=== PATIENT | female | born 1945 | race Caucasian/White ===

== ENCOUNTER 2023-06-07 12:39 | Inpatient (IN) | payer MEDICARE, OTHER ==
[2023-06-07 13:21] LABS: BASOPHILS PERCENT AUTO 0.4 % (0.2-1.5); EOSINOPHILS PERCENT AUTO 0.2 % (0.6-8.1); HEMATOCRIT 35.4 % (34.2-48.2); HEMOGLOBIN 11.9 g/dL (11.4-15.5); LYMPHOCYTES ABSOLUTE AUTO 0.6 x10-3/uL (1.0-4.4); LYMPHOCYTES PERCENT AUTO 7.9 % (18.4-52.1); MEAN CORPUSCULAR HEMOGLOBIN 30.4 pg (23.9-33.9); MEAN CORPUSCULAR HGB CONC 33.7 g/dL (31.9-34.8); MEAN CORPUSCULAR VOLUME 90.2 fL (76.7-100.5); MEAN PLATELET VOLUME 7.7 fL (7.1-12.4); MONOCYTES ABSOLUTE AUTO 0.5 x10-3/uL (0.3-1.0); MONOCYTES PERCENT AUTO 6.6 % (4.4-15.7); NEUTROPHILS ABSOLUTE AUTO 6.6 x10-3/uL (1.5-6.3); NEUTROPHILS PERCENT AUTO 84.9 % (30.8-76.2); PLATELET COUNT,PLT 245 x10(3)uL (151-488); RED BLOOD CELL COUNT 3.92 x10(6)uL (3.60-5.20); RED CELL DISTRIBUTION WIDTH 15.1 % (12.3-16.5); WHITE BLOOD CELL COUNT,WBC 7.8 x10-3/uL (3.0-10.3)
[2023-06-07 13:28] LABS: BLOOD UREA NITROGEN,BUN 36 mg/dL (7-18); BUN/CREATININE RATIO 18.9 (9-20); CALCIUM 10.3 mg/dL (8.6-10.2); CARBON DIOXIDE,CO2 28 mmol/L (21-32); CHLORIDE,CL 99 mmol/L (100-110); CREATININE 1.9 mg/dL (0.55-1.02); EST CRCL DRUG DOSING (CG) 20.73 mL/min; ESTIMATED GFR 27 mL/min (>60); GLUCOSE RANDOM 262 mg/dL (80-116); POTASSIUM,K 3.9 mmol/L (3.5-5.3); SODIUM,NA 136 mmol/L (135-145)
[2023-06-07 13:34] LABS: A/G RATIO 0.9; ALANINE AMINOTRANSFERASE,ALT 36 U/L (12-36); ALBUMIN 3.6 g/dL (3.2-4.6); ALKALINE PHOSPHATASE 89 IU/L (56-112); ASPARTATE AMNIOTRANSFERASE,AST 84 IU/L (5-25); BILIRUBIN TOTAL 0.9 mg/dL (0.1-1.3); PROTEIN TOTAL,TP 7.5 g/dL (6.0-8.0)
[2023-06-07] MEDS: HYDROmorphone 2 MG/ML SDV IVPUSH ONE (13:38)
[2023-06-07 13:50] LABS: INFLUENZA A NAA NEGATIVE (NEGATIVE); INFLUENZA B NAA NEGATIVE (NEGATIVE); RESPIRATORY SYNCYTIAL VIR NAA NEGATIVE (NEGATIVE)
[2023-06-07 13:52] LABS: CORONAVIRUS COVID-19 NAA POSITIVE (NEGATIVE)
[2023-06-07 13:56] LABS: INR 1.09 (1.00-1.24); PROTHROMBIN TIME 11.2 sec (9.0-11.1); PTT,PARTIAL THROMBOPLSTIN TIME 34.4 SECONDS (24.4-33.2)
[2023-06-07 14:01] LABS: LACTIC ACID 2.3 mmol/L (0.4-2.0)
[2023-06-07] MEDS: Sodium Chloride 0.9% 1,000 ML IV SCH ×2 (14:11→16:55)
[2023-06-07 14:49] LABS: BILIRUBIN,URINE NEGATIVE (NEGATIVE); GLUCOSE,URINE 100 mg/dL (NORMAL); KETONES,URINE NEGATIVE (NEGATIVE); LEUKOCYTE ESTERASE,URINE NEGATIVE (NEGATIVE); NITRITE,URINE NEGATIVE (NEGATIVE); OCCULT BLOOD,URINE LARGE (NEGATIVE); PROTEIN,URINE TRACE mg/dL (NEGATIVE); UROBILINOGEN,URINE NORMAL (NEGATIVE)
[2023-06-07 14:56] LABS: APPEARANCE,URINE CLEAR (CLEAR); BACTERIA,URINE OCCASIONAL (NS); COLOR,URINE YELLOW (YELLOW); RBC,URINE 0-5 (0-5); SQUAMOUS EPITHELIAL CELLS,UR OCCASIONAL (NS,R,O); WBC,URINE 0-5 (0-5)
[2023-06-07] MEDS ORDERED: Ondansetron 4 MG/2 ML SDV IV PRN (15:25)
[2023-06-07] MEDS ORDERED: Sennosides/Docusate Sodium 50-8.6 MG Tab PO PRN (15:25)
[2023-06-07] MEDS ORDERED: [UNRECOGNIZED DRUG - OTHER] TOP PRN (15:35)
[2023-06-07] MEDS ORDERED: Loratadine 10 MG Tab PO PRN (15:35)
[2023-06-07] MEDS ORDERED: CALCIUM ACETATE TOP PRN (15:35)
[2023-06-07] MEDS ORDERED: [UNRECOGNIZED DRUG - OTHER] NAS PRN (15:35)
[2023-06-07] MEDS: Dexamethasone 4 MG/ML 5 ML MDV IVPUSH SCH (16:52)
[2023-06-07] MEDS: REMDESIVIR 200 MG in Sodium Chloride 0.9% 250 ML IV ONE (16:58)
[2023-06-07] MEDS: Acetaminophen 325 MG Tab PO PRN (18:30)
[2023-06-07] MEDS: cefTRIAXone 1 GM Vial IVPUSH SCH (19:02)
[2023-06-07] MEDS: Apixaban 2.5 MG Tab PO SCH (20:02)
[2023-06-07] MEDS: Fluticasone NASAL Spray 16 GM Bottle NAS SCH (20:02)
[2023-06-07] MEDS: Mupirocin Oint 22 GM Tube TOP SCH (20:03)
[2023-06-07] MEDS: Diltiazem 240 MG Cap.ER PO SCH (20:03)
[2023-06-07] MEDS: metFORMIN 500 MG Tab PO SCH (20:04)
[2023-06-07] MEDS: glipiZIDE 5 MG Tab.ER PO SCH (20:05)
[2023-06-07] MEDS: Gabapentin 100 MG Cap PO SCH (20:05)
[2023-06-08 06:32] LABS: HEMATOCRIT 31.8 % (34.2-48.2); HEMOGLOBIN 10.7 g/dL (11.4-15.5); MEAN CORPUSCULAR HEMOGLOBIN 30.2 pg (23.9-33.9); MEAN CORPUSCULAR HGB CONC 33.5 g/dL (31.9-34.8); MEAN CORPUSCULAR VOLUME 90.2 fL (76.7-100.5); MEAN PLATELET VOLUME 7.4 fL (7.1-12.4); PLATELET COUNT,PLT 189 x10(3)uL (151-488); RED BLOOD CELL COUNT 3.53 x10(6)uL (3.60-5.20); RED CELL DISTRIBUTION WIDTH 15.5 % (12.3-16.5); WHITE BLOOD CELL COUNT,WBC 5.9 x10-3/uL (3.0-10.3)
[2023-06-08 06:42] LABS: A/G RATIO 0.9; ALANINE AMINOTRANSFERASE,ALT 41 U/L (12-36); ALKALINE PHOSPHATASE 75 IU/L (56-112); ASPARTATE AMNIOTRANSFERASE,AST 102 IU/L (5-25); BILIRUBIN TOTAL 0.3 mg/dL (0.1-1.3); BLOOD UREA NITROGEN,BUN 34 mg/dL (7-18); BUN/CREATININE RATIO 24.3 (9-20); CALCIUM 9.2 mg/dL (8.6-10.2); CARBON DIOXIDE,CO2 24 mmol/L (21-32); CHLORIDE,CL 103 mmol/L (100-110); CREATININE 1.4 mg/dL (0.55-1.02); EST CRCL DRUG DOSING (CG) 28.14 mL/min; ESTIMATED GFR 38 mL/min (>60); GLUCOSE RANDOM 266 mg/dL (80-116); POTASSIUM,K 4.3 mmol/L (3.5-5.3); PROTEIN TOTAL,TP 6.5 g/dL (6.0-8.0); SODIUM,NA 137 mmol/L (135-145)
[2023-06-08 06:49] LABS: BAND PERCENT MAN 2 % (0-6); LYMPHOCYTES PERCENT MAN 8 % (13-37); MONOCYTES PERCENT MAN 3 % (4-12); SEG NEUTROPHILS PERCENT MAN 87 % (46-82)
[2023-06-08] MEDS: metFORMIN 500 MG Tab PO SCH (08:00)
[2023-06-08] MEDS: Losartan 100 MG Tab PO SCH (08:02)
[2023-06-08] MEDS: Multivitamins with Iron/Calcium/Folic Acid/Minerals Tab PO SCH (08:04)
[2023-06-08] MEDS ORDERED: Fluticasone NASAL Spray 16 GM Bottle NAS PRN (10:00)
[2023-06-08] MEDS: traMADol 50 MG Tab PO PRN (11:23)
[2023-06-08] MEDS: REMDESIVIR 100 MG in Sodium Chloride 0.9% 100 ML IV SCH (16:08)
[2023-06-08] MEDS: Acetaminophen 650 MG Tab.ER PO SCH (21:39)
[2023-06-09 06:53] LABS: BASOPHILS PERCENT AUTO 0.3 % (0.2-1.5); EOSINOPHILS PERCENT AUTO 0.1 % (0.6-8.1); HEMATOCRIT 31.4 % (34.2-48.2); HEMOGLOBIN 10.6 g/dL (11.4-15.5); LYMPHOCYTES ABSOLUTE AUTO 0.9 x10-3/uL (1.0-4.4); LYMPHOCYTES PERCENT AUTO 11.9 % (18.4-52.1); MEAN CORPUSCULAR HEMOGLOBIN 30.7 pg (23.9-33.9); MEAN CORPUSCULAR HGB CONC 33.7 g/dL (31.9-34.8); MEAN CORPUSCULAR VOLUME 91.2 fL (76.7-100.5); MEAN PLATELET VOLUME 8.3 fL (7.1-12.4); MONOCYTES ABSOLUTE AUTO 0.3 x10-3/uL (0.3-1.0); MONOCYTES PERCENT AUTO 4.4 % (4.4-15.7); NEUTROPHILS ABSOLUTE AUTO 6.1 x10-3/uL (1.5-6.3); NEUTROPHILS PERCENT AUTO 83.3 % (30.8-76.2); PLATELET COUNT,PLT 193 x10(3)uL (151-488); RED BLOOD CELL COUNT 3.44 x10(6)uL (3.60-5.20); RED CELL DISTRIBUTION WIDTH 15.7 % (12.3-16.5); WHITE BLOOD CELL COUNT,WBC 7.3 x10-3/uL (3.0-10.3)
[2023-06-09 07:06] LABS: A/G RATIO 0.8; ALANINE AMINOTRANSFERASE,ALT 51 U/L (12-36); ALKALINE PHOSPHATASE 64 IU/L (56-112); ASPARTATE AMNIOTRANSFERASE,AST 103 IU/L (5-25); BILIRUBIN TOTAL 0.2 mg/dL (0.1-1.3); BLOOD UREA NITROGEN,BUN 42 mg/dL (7-18); CARBON DIOXIDE,CO2 22 mmol/L (21-32); CHLORIDE,CL 102 mmol/L (100-110); CREATININE 1.5 mg/dL (0.55-1.02); EST CRCL DRUG DOSING (CG) 26.26 mL/min; ESTIMATED GFR 35 mL/min (>60); GLUCOSE RANDOM 280 mg/dL (80-116); POTASSIUM,K 4.7 mmol/L (3.5-5.3); PROTEIN TOTAL,TP 6.8 g/dL (6.0-8.0); SODIUM,NA 135 mmol/L (135-145)
[2023-06-09] MEDS: Torsemide 20 MG Tab PO SCH (08:07)
[2023-06-09] MEDS ORDERED: Torsemide 20 MG Tab PO SCH (09:00)
[2023-06-09] MEDS: Nystatin Topical Powder 15 GM Bottle TOP SCH (10:49)
[2023-06-09] MEDS: Mupirocin Oint 22 GM Tube TOP SCH (10:49)
[2023-06-09] MEDS: Sodium Chloride 0.9% 10 ML Syringe FLUSH PRN (15:56)
[2023-06-09] MEDS: Diltiazem 240 MG Cap.ER PO SCH (21:31)
[2023-06-11] MEDS: Nystatin Topical Powder 15 GM Bottle TOP SCH (08:54)
[2023-06-11] MEDS ORDERED: Gabapentin 100 MG Cap ONE (21:17)
[2023-06-11] MEDS ORDERED: Acetaminophen 325 MG Tab ONE (21:22)
== END 2023-06-11 11:40 | disposition swing bed (61) | DRG 178 ==
LOC: FB.ED 12:39 → FB.MS 15:25 → UNDOADMIN 15:57
PROVIDERS: ADMIT Family Medicine; ATTEND Family Medicine
PROC: 3E0333Z Introduction of Anti-inflammatory into Peripheral Vein, Percutaneous Approach (ICD-10-PCS; principal; 2023-06-07)
PROC: XW033E5 Introduction of Remdesivir Anti-infective into Peripheral Vein, Percutaneous Approach, New Technology Group 5 (ICD-10-PCS; 2023-06-07)
DX: U07.1 COVID-19 (principal); I13.0 Hypertensive heart and chronic kidney disease with heart failure and stage 1 through stage 4 chronic kidney disease, or unspecified chronic kidney disease; L03.115 Cellulitis of right lower limb; I48.91 Unspecified atrial fibrillation; M51.36 Other intervertebral disc degeneration, lumbar region; M62.82 Rhabdomyolysis; N17.9 Acute kidney failure, unspecified; L03.90 Cellulitis, unspecified; I11.0 Hypertensive heart disease with heart failure; I48.11 Longstanding persistent atrial fibrillation; E11.22 Type 2 diabetes mellitus with diabetic chronic kidney disease; Z51.5 Encounter for palliative care; E11.40 Type 2 diabetes mellitus with diabetic neuropathy, unspecified; I50.9 Heart failure, unspecified; M19.90 Unspecified osteoarthritis, unspecified site; E86.0 Dehydration; N18.9 Chronic kidney disease, unspecified; T79.6XXA Traumatic ischemia of muscle, initial encounter; M51.16 Intervertebral disc disorders with radiculopathy, lumbar region; G89.29 Other chronic pain; I87.2 Venous insufficiency (chronic) (peripheral); Z79.01 Long term (current) use of anticoagulants; Z88.8 Allergy status to other drugs, medicaments and biological substances; Z91.048 Other nonmedicinal substance allergy status; Z96.659 Presence of unspecified artificial knee joint; Z79.84 Long term (current) use of oral hypoglycemic drugs; Z79.899 Other long term (current) drug therapy; Z90.89 Acquired absence of other organs; Z90.49 Acquired absence of other specified parts of digestive tract; Z98.890 Other specified postprocedural states
CPT/HCPCS: 0241U; 36415; 71045; 72100; 73521; 80053; 81001; 82550; 82947; 83605; 84484; 85025; 85610; 85730; 93005; 93010; 96361; 96374; 97161; 97165; 97530; 99285; 99222; 99231; 99232; 99238; A9270-GY; J0696; J1100; J1170; J3490; J7030; J7050

== ENCOUNTER 2023-06-11 11:41 | Inpatient (IN) | payer MEDICARE, OTHER ==
[2023-06-11] MEDS ORDERED: Acetaminophen/HYDROcodone 325-5 MG Tab PO PRN (12:38)
[2023-06-11] MEDS ORDERED: Acetaminophen 650 MG Tab.ER PO PRN (12:45)
[2023-06-11] MEDS: REMDESIVIR 100 MG in Sodium Chloride 0.9% 100 ML IV SCH (15:33)
[2023-06-11] MEDS ORDERED: Dexamethasone 4 MG/ML 5 ML MDV IVPUSH ONE (16:00)
[2023-06-11] MEDS: Acetaminophen 325 MG Tab PO PRN (16:44)
[2023-06-11] MEDS ORDERED: Acetaminophen 650 MG Tab.ER PO SCH (21:00)
[2023-06-11] MEDS: glipiZIDE 5 MG Tab.ER PO SCH (21:11)
[2023-06-11] MEDS: Apixaban 2.5 MG Tab PO SCH (21:12)
[2023-06-11] MEDS: metFORMIN 500 MG Tab PO SCH (21:12)
[2023-06-11] MEDS: Diltiazem 240 MG Cap.ER PO SCH (21:13)
[2023-06-11] MEDS: Gabapentin 100 MG Cap PO SCH (21:18)
[2023-06-12] MEDS: Multivitamin Tab PO SCH (09:17)
[2023-06-12] MEDS: Losartan 100 MG Tab PO SCH (09:18)
[2023-06-12] MEDS: Torsemide 20 MG Tab PO SCH (09:18)
[2023-06-12 09:26] LABS: HEMOGLOBIN 12.5 g/dL (11.4-15.5); MEAN CORPUSCULAR HEMOGLOBIN 29.9 pg (23.9-33.9); MEAN CORPUSCULAR HGB CONC 33.9 g/dL (31.9-34.8); MEAN CORPUSCULAR VOLUME 88.2 fL (76.7-100.5); MEAN PLATELET VOLUME 8.2 fL (7.1-12.4); PLATELET COUNT,PLT 292 x10(3)uL (151-488); RED CELL DISTRIBUTION WIDTH 14.6 % (12.3-16.5); WHITE BLOOD CELL COUNT,WBC 10.5 x10-3/uL (3.0-10.3)
[2023-06-12] MEDS: Triamcinolone Acetonide 0.1% Crm 15 GM Tube TOP SCH (09:28)
[2023-06-12 09:34] LABS: A/G RATIO 0.8; ALANINE AMINOTRANSFERASE,ALT 57 U/L (12-36); ALBUMIN 3.2 g/dL (3.2-4.6); ALKALINE PHOSPHATASE 78 IU/L (56-112); ASPARTATE AMNIOTRANSFERASE,AST 31 IU/L (5-25); BILIRUBIN TOTAL 0.5 mg/dL (0.1-1.3); BLOOD UREA NITROGEN,BUN 56 mg/dL (7-18); BUN/CREATININE RATIO 32.9 (9-20); CALCIUM 10.1 mg/dL (8.6-10.2); CARBON DIOXIDE,CO2 28 mmol/L (21-32); CHLORIDE,CL 94 mmol/L (100-110); CREATINE KINASE,CK 108 IU/L (60-160); CREATININE 1.7 mg/dL (0.55-1.02); EST CRCL DRUG DOSING (CG) 23.17 mL/min; ESTIMATED GFR 30 mL/min (>60); POTASSIUM,K 3.6 mmol/L (3.5-5.3); PROTEIN TOTAL,TP 7.3 g/dL (6.0-8.0); SODIUM,NA 133 mmol/L (135-145)
[2023-06-12 09:42] LABS: GLUCOSE RANDOM 403 mg/dL (80-116)
[2023-06-12 09:49] LABS: LYMPHOCYTES PERCENT MAN 12 % (13-37); MONOCYTES PERCENT MAN 5 % (4-12); SEG NEUTROPHILS PERCENT MAN 83 % (46-82)
[2023-06-12] MEDS: Polyethylene Glycol 3350 Powder 17 GM Packet PO PRN (12:52)
[2023-06-20] MEDS: Fluticasone NASAL Spray 16 GM Bottle NAS PRN (08:16)
== END 2023-06-20 11:40 | disposition home health service (06) | DRG 947 ==
LOC: FB.MS 11:41
PROVIDERS: ADMIT Family Medicine; ATTEND Family Medicine
PROC: XW033E5 Introduction of Remdesivir Anti-infective into Peripheral Vein, Percutaneous Approach, New Technology Group 5 (ICD-10-PCS; principal; 2023-06-11)
PROC: 3E0333Z Introduction of Anti-inflammatory into Peripheral Vein, Percutaneous Approach (ICD-10-PCS; 2023-06-11)
DX: R53.1 Weakness (principal); U07.1 COVID-19; M62.82 Rhabdomyolysis; M54.41 Lumbago with sciatica, right side; R29.898 Other symptoms and signs involving the musculoskeletal system; I10 Essential (primary) hypertension; E11.9 Type 2 diabetes mellitus without complications; G89.29 Other chronic pain; I48.0 Paroxysmal atrial fibrillation; M54.9 Dorsalgia, unspecified; Z96.659 Presence of unspecified artificial knee joint; M19.90 Unspecified osteoarthritis, unspecified site; Z90.89 Acquired absence of other organs; Z90.49 Acquired absence of other specified parts of digestive tract; Z79.01 Long term (current) use of anticoagulants; Z79.899 Other long term (current) drug therapy; Z88.8 Allergy status to other drugs, medicaments and biological substances; Z86.010 Personal history of colon polyps; Z98.890 Other specified postprocedural states
CPT/HCPCS: 36415; 80053; 82550; 82947; 85025; 97110-GP; 97116-GP; 97530-GO; 97530-GP; 97535-GO; 99305; 99307; 99315; A9270-GY; J3490